=== PATIENT | male | born 1960 | race Native Hawaiian/Other Pacific Islander ===

== ENCOUNTER 2018-08-22 17:00 | Inpatient (IN) | payer OTHER ==
[2018-08-22] VITALS (14 sets, daily range): BP systolic 81–155; BP diastolic 42–91; TEMP 98–98.1
[~2018-08-22] VITALS: Ht 170.2 cm; Wt 95.0 kg
[2018-08-22] MEDS ORDERED: IBU800 MG PO (17:07)
[2018-08-22] MEDS ORDERED: [UNRECOGNIZED DRUG - OTHER] INH (17:08)
[2018-08-22] MEDS ORDERED: GRALISE600 MG PO (17:09)
[2018-08-22] MEDS ORDERED: HYDR50CA21 PO (17:09)
[2018-08-22] MEDS ORDERED: RISPERDAL4 MG PO (17:10)
[2018-08-22] MEDS ORDERED: RISP2TAB2 PO (17:10)
[2018-08-22] MEDS ORDERED: FLUOXETINE20 MG PO (17:10)
[2018-08-22] MEDS ORDERED: ATEN50TA36 PO (17:12)
[2018-08-22] MEDS ORDERED: REMERON SLTB45 MG PO (17:12)
[2018-08-22] MEDS ORDERED: TRIAMCINOLON0.12 TOP (17:12)
[2018-08-22] MEDS ORDERED: AMLODIPINE BESYLATE PO (17:13)
[2018-08-22] MEDS ORDERED: OMEP20CA PO (17:13)
[2018-08-22] MEDS ORDERED: TAMS0.4C PO (17:14)
[2018-08-22] MEDS ORDERED: PRAVACHOL20 MG PO (17:14)
[2018-08-22] MEDS ORDERED: LISI10TA11 PO (17:14)
[2018-08-22] MEDS ORDERED: FAMO20TA4 PO (17:15)
[2018-08-22] MEDS ORDERED: METF100038 PO (17:16)
[2018-08-22] MEDS ORDERED: FINA5TAB2 PO (17:17)
[2018-08-22] MEDS ORDERED: ASPIRIN/ENTERIC81 MG PO (17:17)
[2018-08-22] MEDS ORDERED: XOPENEX HF45 MCG/ACT INH (17:18)
[2018-08-22] MEDS ORDERED: NOVOLIN R100 UNIT/1 SC (17:19)
[2018-08-22] MEDS ORDERED: NOVOLOG MIX 70/30 PR SC ×2 (17:20→17:21)
[2018-08-22 17:43] LABS: PLATELET COUNT 335 K/uL (142-355)
[2018-08-22 18:03] LABS: POTASSIUM 3.8 mmol/L (3.6-5.2); SODIUM 128 mmol/L (136-145)
[2018-08-23] VITALS (10 sets, daily range): BP systolic 115–154; BP diastolic 66–90; TEMP 97–98.1; Ht 170.2 cm; Wt 95.0 kg
[2018-08-23 08:42] LABS: PLATELET COUNT 268 K/uL (142-355)
[2018-08-23 09:18] LABS: POTASSIUM 4.1 mmol/L (3.6-5.2)
[2018-08-24 04:00] VITALS: BP 142/97; TEMP 97.5
[2018-08-24 08:00] VITALS: BP 161/100; TEMP 97.5
[2018-08-24 08:02] VITALS: BP 155/100; TEMP 97.5
== END 2018-08-24 09:35 | DRG 683 ==
LOC: ED 17:06 → ICU 19:10 → ED 19:10 → ICU 19:10 → MED/SURG 08-23 14:30 → ICU 08-23 14:30 → ED 08-23 15:13 → MED/SURG 08-23 15:13 → EDBD 08-23 15:13 → ICU 08-24 09:35 → MED/SURG 08-24 09:35
PROVIDERS: Emergency Medicine; ADMIT Family Medicine
DX: N17.8 Other acute kidney failure (principal); E87.1 Hypo-osmolality and hyponatremia; E11.65 Type 2 diabetes mellitus with hyperglycemia; N18.4 Chronic kidney disease, stage 4 (severe); R41.82 Altered mental status, unspecified; D72.828 Other elevated white blood cell count; I12.9 Hypertensive chronic kidney disease with stage 1 through stage 4 chronic kidney disease, or unspecified chronic kidney disease; E11.22 Type 2 diabetes mellitus with diabetic chronic kidney disease; N40.0 Benign prostatic hyperplasia without lower urinary tract symptoms; D64.89 Other specified anemias; I95.89 Other hypotension
CPT/HCPCS: 51702; 80053; 80307; 81000; 81002; 82550; 82553; 83036; 83880; 84484; 85027; 93005; 96361; 96365; 99220; 99285; G0378; J1815

== ENCOUNTER 2018-09-06 11:43 | Outpatient (CLI) | payer OTHER ==
[~2018-09-06 11:43] MED LIST: AMLODIPINE BESYLATE PO; ASPIRIN/ENTERIC81 MG PO; ATEN50TA36 PO; FAMO20TA4 PO; FINA5TAB2 PO; FLUOXETINE20 MG PO; GRALISE600 MG PO; HYDR50CA21 PO; IBU800 MG PO; LISI10TA11 PO; METF100038 PO; NOVOLIN R100 UNIT/1 SC; NOVOLOG MIX 70/30 PR SC; OMEP20CA PO; PRAVACHOL20 MG PO; REMERON SLTB45 MG PO; RISP2TAB2 PO; RISPERDAL4 MG PO; TAMS0.4C PO; TRIAMCINOLON0.12 TOP; XOPENEX HF45 MCG/ACT INH; [UNRECOGNIZED DRUG - OTHER] INH
== END 2018-09-06 23:05 | disposition home or self-care (01) ==
LOC: MRI 11:43
DX: I95.89 Other hypotension (principal)